=== PATIENT | male | born 1975 | race Caucasian/White ===

== ENCOUNTER 2017-07-30 12:37 | Emergency (ER) | payer BC ==
[~2017-07-30] VITALS: Wt 90.7 kg
[~2017-07-30 12:37] MED LIST: CORDROL20 MG PO; EPI EZ PEN1 MG/ML SC; KEFLEX500 MG PO; MULTIPLE VITAMI1 CAP PO; NASONEX0.05 MG/AC NS; NEXIUM40 MG PO; TORADOL10 MG PO; VICODIN 5/500 505 MG PO; VICODIN ES 7501 TAB PO
[2017-07-30] MEDS ORDERED: DOXYCYCLINE100 M3 PO (14:49)
[2017-07-30] MEDS ORDERED: TESSALON PERLE100 M1 PO (14:49)
[2017-07-30] MEDS ORDERED: DELTASONE20 M1 PO (14:49)
[2017-07-30] MEDS ORDERED: PROVENTIL HFA6.7 GM INH (14:49)
== END 2017-07-30 15:02 | disposition home or self-care (01) ==
LOC: ED 12:37
DX: J40 Bronchitis, not specified as acute or chronic (principal); F17.200 Nicotine dependence, unspecified, uncomplicated; Z90.49 Acquired absence of other specified parts of digestive tract; Z79.899 Other long term (current) drug therapy

== ENCOUNTER 2019-07-06 15:27 | Emergency (ER) | payer BC ==
[~2019-07-06] VITALS: Ht 175.2 cm; Wt 99.8 kg
[~2019-07-06 15:27] MED LIST changes: +DELTASONE20 M1 PO; +DOXYCYCLINE100 M3 PO; +PROVENTIL HFA6.7 GM INH; +TESSALON PERLE100 M1 PO
== END 2019-07-06 17:34 | disposition home or self-care (01) ==
LOC: ED 15:27
DX: S81.012A Laceration without foreign body, left knee, initial encounter (principal); Z79.899 Other long term (current) drug therapy; Z79.2 Long term (current) use of antibiotics; Z90.49 Acquired absence of other specified parts of digestive tract; W26.8XXA Contact with other sharp object(s), not elsewhere classified, initial encounter; Y93.89 Activity, other specified; Y92.89 Other specified places as the place of occurrence of the external cause; Y99.8 Other external cause status

== ENCOUNTER → 2019-10-31 | Outpatient (CLI) | payer BC | END | disposition home or self-care (01) | LOC: RAD 21:19 | DX: M54.5 Low back pain (principal); M25.551 Pain in right hip ==

== ENCOUNTER 2019-11-01 11:26 | Emergency (ER) | payer BC ==
[~2019-11-01] VITALS: Ht 177.8 cm; Wt 99.8 kg
== END 2019-11-01 13:52 | disposition home or self-care (01) ==
LOC: ED 11:26
DX: S61.412A Laceration without foreign body of left hand, initial encounter (principal); Z79.899 Other long term (current) drug therapy; W45.8XXA Other foreign body or object entering through skin, initial encounter; Y93.89 Activity, other specified; Y92.89 Other specified places as the place of occurrence of the external cause; Y99.8 Other external cause status

== ENCOUNTER → 2020-02-10 | Outpatient (CLI) | payer BC | END | disposition home or self-care (01) | LOC: COVID19 09:17 | PROVIDERS: ATTEND Family Medicine | DX: U07.1 COVID-19 (principal) ==

== ENCOUNTER 2021-06-24 15:13 | Emergency (ER) | payer BC ==
[~2021-06-24] VITALS: Wt 108.9 kg
[2021-06-24 15:37] LABS: BASO # 0.1 10*3/uL (0.0-0.1); BASO % 0.6 % (0.0-1.0); EOS # 0.3 10*3/uL (0.0-0.4); EOS % 2.2 % (1.0-4.0); HEMATOCRIT 44.7 % (42.0-52.0); LYMPH # 2.2 10*3/uL (1.3-4.4); LYMPH % 19.4 % (27.0-41.0); MEAN CORPUSCULAR HGB 29.8 pg (27.0-31.0); MEAN CORPUSCULAR HGB CONC 34.2 g/dl (33.0-37.0); MEAN PLATELET VOLUME 8.6 fl (9.6-12.3); MONO # 0.8 10*3/uL (0.1-1.0); MONO % 6.7 % (3.0-9.0); NEUT # 8.1 10*3/uL (2.3-7.9); NEUT % 70.7 % (47.0-73.0); PLATELET COUNT AUTOMATED 399 10*3/uL (130-400); RED BLOOD COUNT 5.14 10*6/uL (4.50-5.90); RED CELL DISTRI WIDTH 12.2 % (0-14.5); WHITE BLOOD COUNT 11.4 10*3/uL (4.8-10.8)
[2021-06-24 15:45] LABS: BILIRUBIN Negative (Negative); BLOOD Negative (Negative); CLARITY Cloudy (Clear); COLOR Yellow (Yellow); GLUCOSE Negative (Negative); KETONE Negative (Negative); LEUKO ESTERASE Negative (Negative); NITRITE Negative (Negative)
[2021-06-24 15:57] LABS: ALKALINE PHOSPHATASE 101 U/L (45-117); BUN 12 mg/dl (7-24); CHLORIDE 107 mmol/L (98-107); CREATININE 1.34 mg/dL (0.70-1.30); LIPASE 76 U/L (73-393); POTASSIUM 3.7 mmol/L (3.5-5.1); SGOT/AST 15 IU/L (3-35); SGPT/ALT 34 U/L (12-78); SODIUM 140 mmol/L (136-145); TOTAL PROTEIN 7.5 gm/dL (6.4-8.2)
[2021-06-24 16:08] LABS: BACTERIA 4+; EPITHELIAL CELLS 0-2; MUCOUS 2+
[2021-06-24] MEDS ORDERED: FLOMAX0.4 MG PO (17:24)
[2021-06-24] MEDS ORDERED: HYDROCODONE-AC1 EAC1 PO (17:24)
[2021-06-24] MEDS ORDERED: ZOFRAN4 MG PO (17:24)
== END 2021-06-24 17:29 | disposition home or self-care (01) ==
LOC: ED 15:13
PROVIDERS: Physician Assistant
DX: N23 Unspecified renal colic (principal); Z79.899 Other long term (current) drug therapy; Z90.49 Acquired absence of other specified parts of digestive tract